=== PATIENT | female | born 1990 | race Caucasian/White ===

== ENCOUNTER 2018-10-09 22:30 | Emergency (ER) | payer BC ==
[~2018-10-09] VITALS: Ht 147.3 cm; Wt 83.6 kg
[2018-10-09 22:34] VITALS: BP 122/70; PULSE 98; RESP 20; Ht 147.3 cm; Wt 83.6 kg
--- NOTE | 2018-10-10 01:50 | ERD ---
ER Documentation Chief Complaint Chief Complaint COUGH, FEVER X'S 2 DAYS HPI Patient is a 28 years old female with no known past medical history presenting to the clinic for cough, fever, chest congestion, bilateral ear pain, headache X 2 days. Patient admits to taking Mucinex [id number] and is unsure if it i s helping. Patient denies chest pain, shortness of breath, difficulty breathing, wheezing, throat pain, sinus pressure. ROS All systems reviewed and are negative except as per history of present illness. Allergies Allergies: Coded Allergies: No Known Allergy (Unverified , 10/09/18) PMhx/Soc Medical and Surgical Hx: pt denies Medical Hx, pt denies Surgical Hx History of Surgery: No Anesthesia Reaction: No Hx Neurological Disorder: No Hx Respiratory Disorders: No Hx Cardiac Disorders: No Hx Psychiatric Problems: No Hx Miscellaneous Medical Probl: No Hx Alcohol Use: No Hx Substance Use: No Hx Tobacco Use: No Smoking Status: Never smoker FmHx Family History: No diabetes, No coronary disease, No other Physical Exam Vitals Vital Signs Date Temp Pulse Resp B/P (MAP) Pulse Ox O2 O2 Flow FiO2 Time Delivery Rate 10/09/18 98.1 98 20 122/70 96 22:34 (87) Physical Exam Const: No acute distress Head: Atraumatic Eyes: Normal Conjunctiva ENT: Normal External Ears, Nose and Mouth. Tympanic membrane erythematous bilaterally without discharge or perforation. Neck: Full range of motion. No meningismus. Resp: Clear to auscultation bilaterally. No rales, rhonchi, wheezing. No signs of respiratory distress. Cardio: Regular rate and rhythm, no murmurs Neur: Awake and alert Psych: Normal Mood and Affect Procedures/MDM Patient was seen and evaluated for cough without complications. Patient's clinical presentation indicate viral URI with cough with superimposed bilateral otitis media. Patient is stable and ready for discharge. Follow-up with PCP. Patient will be discharged with Promethazine DM and Augmentin X 10 days. Departure Diagnosis: Primary Impression: Cough Additional Impression: Otitis media Otitis media type: suppurative Chronicity: acute Laterality: bilateral Recurrence: non-recurrent Spontaneous tympanic membrane rupture: without spontaneous rupture Qualified Codes: H66.003 - Acute suppurative otitis media without spontaneous rupture of ear drum, bilateral Patient Instructions: Otitis Media, Abx Tx (Adult), Cough, Chronic, Uncertain Cause, (Adult) Referrals: [facility] Additional Instructions: Patient advised to return to the ED immediately for new or worsening symptoms. Patient advised to follow up with primary care provider in the next 24-48 hours. Patient verbalized understanding and agrees with treatment plan and course of action. If patient has no primary care they may follow up with [facility] + [facility] [address] [place] [id number] or [facility] [id number] [place] [id number] or [facility] [address] [place] [address] LESTER SHEPARD PA-C Oct 10, 2018 01:50
[2018-10-10] MEDS ORDERED: D-ME473S2 PO (01:51)
[2018-10-10] MEDS ORDERED: AMOX1TAB9 PO (01:51)
== END 2018-10-10 02:51 | disposition home or self-care (01) ==
LOC: FTE 22:30
DX: H66.003 Acute suppurative otitis media without spontaneous rupture of ear drum, bilateral (principal)
CPT/HCPCS: 99283